=== PATIENT | female | born 1955 | race Caucasian/White ===

== ENCOUNTER 2017-03-14 22:54 | Emergency (ER) | payer MEDICARE, OTHER ==
[~2017-03-14] VITALS: Ht 172.7 cm; Wt 97.0 kg
[~2017-03-14 22:54] MED LIST: ACCUMIS19; ASPI81TA82 PO; ATOR40TA16 PO; CENTTAB9 PO; CYCL5TAB PO; GLIP5TAB8 PO; LANCETS1 MI1; LISI-515 PO; METF1000 PO; MIRA33504 PO; OXYB5TAB PO; PROZ20CA11 PO
[2017-03-14 23:08] VITALS: BP 123/67; PULSE 81; RESP 20; TEMP 98; O2SAT 97
[2017-03-15] MEDS ORDERED: ASPI-516 CHEW (00:12)
[2017-03-15] MEDS ORDERED: CENTCHW4 CHEW (00:12)
--- NOTE | 2017-03-15 01:09 | PD ---
HPI Chief Complaint: Musculoskeletal Complaint Time Seen by Provider: 00:11 Travel History International Travel<30 days: No Contact w/Intl Traveler<30days: No Traveled to known affect area: No History of Present Illness HPI Patient is a 61-year-old female who said left knee pain for the last 2 weeks she has not seen a doctor for this she's been taking ibuprofen without relief of her symptoms. Patient comes to the ER saying it's difficult to weight on her knee, In ER she is in no apparent distress. Says she is having pain constant for 2 weeks. Pt borrowed a knee immobilizer from friend , she is wearing it in the ER PFSH Past Medical History Hx Anticoagulant Therapy: No Asthma: Yes Autoimmune Disease: No Blood Disorders: No Anxiety: Yes Depression: Yes Heart Rhythm Problems: No Cancer: Yes (LUNG) Cardiac Catheterization: No Cardiovascular Problems: No High Cholesterol: No Chemotherapy: Yes (2014) Chest Pain: Yes Congestive Heart Failure: No Cerebrovascular Accident: No Diabetes: Yes Patient Takes Glucophage: Yes Diminished Hearing: No Endocrine: No Gastrointestinal Disorders: No Genitourinary: Yes (OVERACTIVE BLADDER) Hypertension: Yes Immune Disorder: No Implanted Vascular Access Dvce: No Musculoskeletal: No Neurologic: No Psychiatric: Yes (BORDERLINE PERSONALITY DISORDER) Reproductive: No Respiratory: Yes Immunizations Current: No Radiation Therapy: Yes (2014 FOR LUNG CA) Thyroid Disease: No Tetanus Vaccination: > 5 Years Influenza Vaccination: No PNEUMOCCOCAL Vaccine (Year): 3 ?: Not Menopausal: Yes : 3 Para: 2 : 1 Tubal Ligation: Yes Past Surgical History Abdominal Surgery: Yes (2 C-SECTIONS) Appendectomy: Yes Cardiac Surgery: No Section: Yes (1977,1978) Cholecystectomy: Yes Coronary Artery Bypass Graft: No Ear Surgery: No Endocrine Surgery: No Eye Surgery: No Genitourinary Surgery: No Gynecologic Surgery: Yes Hysterectomy: Yes Joint Replacement: Yes (RIGHT KNEE) Neurologic Surgery: No Oral Surgery: No Thoracic Surgery: No Other Surgery: Yes Social History Alcohol Use: Yes (socially- BEER) Tobacco Use: No (REPORTS QUITTING IN 2014) Substance Use: No Allergies-Medications (Allergen,Severity, Reaction): Coded Allergies: paclitaxel (Verified Allergy, Intermediate, Dizziness, 03/15/17) tramadol (Verified Allergy, Intermediate, Nausea/Vomiting, 03/15/17) acetaminophen (Verified Adverse Reaction, Severe, Nausea/Vomiting, ) hydrocodone (Verified Adverse Reaction, Severe, Nausea/Vomiting, 03/15/17) coconut (Verified Adverse Reaction, Intermediate, vomiting, 03/15/17) Reported Meds & Prescriptions Reported Meds & Active Scripts Active Meloxicam 7.5 Mg Tab 7.5 Mg PO DAILY Lisinopril 20 Mg Tab 20 Mg PO DAILY Oxybutynin ER 24 HR (Oxybutynin Chloride) 5 Mg Tab 5 Mg PO BID Lancets 1 Mis Mis 1 Box .ROUTE DIRECTED Accu-Chek Softclix Lancet 1 Mis Mis 1 Box .ROUTE DIRECTED Glipizide 5 Mg Tab 5 Mg PO DAILY Take 30 minutes before a meal Metformin (Metformin HCl) 1,000 Mg Tab 1,000 Mg PO BIDPC With meals Atorvastatin (Atorvastatin Calcium) 40 Mg Tab 40 Mg PO HS Reported Centrum (Multiple Vitamins W/ Minerals) 1 Chew 1 Tab CHEW DAILY Aspirin 81 Mg Chew 81 Mg CHEW DAILY Review of Systems Except as stated in HPI: all other systems reviewed are Neg Musculoskeletal: Positive: Myalgias, Arthralgias (left knee) Physical Exam Narrative GENERAL: SKIN: Warm and dry. HEAD: Atraumatic. Normocephalic. EYES: Pupils equal and round. No scleral icterus. No injection or drainage. ENT: No nasal bleeding or discharge. Mucous membranes pink and moist. NECK: Trachea midline. No JVD. CARDIOVASCULAR: Regular rate and rhythm. RESPIRATORY: No accessory muscle use. Clear to auscultation. Breath sounds equal bilaterally. GASTROINTESTINAL: Abdomen soft, non-tender, nondistended. Hepatic and splenic margins not palpable. MUSCULOSKELETAL: Extremities L knee no swelling no redness without clubbing, cyanosis, or edema. No obvious deformities. NEUROLOGICAL: Awake and alert. No obvious cranial nerve deficits. Motor grossly within normal limits. Five out of 5 muscle strength in the arms and legs. Normal speech. PSYCHIATRIC: Appropriate mood and affect; insight and judgment normal. Data Data Last Documented VS Vital Signs Date Time Temp Pulse Resp B/P (MAP) Pulse Ox O2 Delivery O2 Flow Rate FiO2 03/15/17 04:54 03/15/17 04:35 88 16 98 Room Air 03/14/17 23:08 98.0 Orders Orders Knee, Complete (4vws) (03/15/17 ) Ketorolac Inj (Toradol Inj) (03/15/17 02:30) Acetamin-Hydrocod 325-5 Mg ([place] 5-325 (03/15/17 02:30) Ed Discharge Order (03/15/17 04:42) MDM Medical Decision Making Medical Screen Exam Complete: Yes Emergency Medical Condition: Yes Differential Diagnosis sprain vs strain vs occult fracture vs ACL or PCL other Narrative Course knee x-ray negative for fracture she already has knee immobilzer motrin and weight baring as tolerated F/U outpt Diagnosis Primary Impression: Knee pain, left Qualified Codes: M25.562 - Pain in left knee Patient Instructions: General Instructions, Knee Sprain (ED) Disposition: 01 DISCHARGE HOME Condition: Dexter Treviño MD Mar 15, 2017 01:09
[2017-03-15 02:17] VITALS: BP 132/63; PULSE 64; RESP 16; O2SAT 97
--- NOTE | 2017-03-15 02:21 | RADRPT ---
EXAM DATE/TIME: 03/15/2017 01:56 [facility] COMPARISON: No previous studies available for comparison. INDICATIONS : Left knee pain, swelling for 2 weeks with no known injury MEDICAL HISTORY : None. SURGICAL HISTORY : None. ENCOUNTER: Initial ACUITY: 2 weeks PAIN SCORE: 10/10 LOCATION: Left entire knee FINDINGS: There is prominent medial compartment joint space narrowing and tricompartmental osteophyte formation . There is a small suprapatellar effusion. No evidence of fracture, dislocation or bony destruction. CONCLUSION: Moderate arthritic changes and small joint effusion. Ravinder Langford MD on March 15, 2017 at 2:09 Board Certified Radiologist. This report was verified electronically.
[2017-03-15] MEDS ORDERED: ACETAMINOPHEN/HYDROcodone 325 MG/5 MG TAB PO ONE (02:30)
[2017-03-15] MEDS ORDERED: KETOROLAC TROMETHAMINE 60 MG/2 ML (IM) VIAL IM ONE (02:30)
[2017-03-15 04:35] VITALS: BP 142/78; PULSE 88; RESP 16; O2SAT 98
[2017-03-15] MEDS ORDERED: TRIA40P I-ARTICULR (11:32)
[2017-03-15] MEDS ORDERED: MELO7.5T27 PO (11:32)
[2017-03-28] MEDS ORDERED: MELO7.5T27 PO (08:37)
== END 2017-03-15 04:56 | disposition home or self-care (01) ==
LOC: PHED 22:54
DX: M25.562 Pain in left knee (principal); J45.909 Unspecified asthma, uncomplicated; E11.9 Type 2 diabetes mellitus without complications; I10 Essential (primary) hypertension; F32.9 Major depressive disorder, single episode, unspecified; Z85.118 Personal history of other malignant neoplasm of bronchus and lung; Z79.84 Long term (current) use of oral hypoglycemic drugs
CPT/HCPCS: 73564; 96372; 99284; J1885

== ENCOUNTER 2017-07-16 17:22 | Observation (INO) | payer MEDICARE, OTHER ==
[~2017-07-16] VITALS: Ht 172.7 cm; Wt 94.4 kg
[~2017-07-16 17:22] MED LIST changes: +ASPI-516 CHEW; -ASPI81TA82 PO; +CENTCHW4 CHEW; -CENTTAB9 PO; -CYCL5TAB PO; +MELO7.5T27 PO; -MIRA33504 PO; -PROZ20CA11 PO
[2017-07-16 17:25] VITALS: BP 159/82; PULSE 89; RESP 18; TEMP 98.4; O2SAT 97
[2017-07-16] MEDS ORDERED: MECLIZINE HCL 25 MG TAB PO ONE (18:00)
[2017-07-16] MEDS ORDERED: SODIUM CHLOR 0.9% 1000 ML INJ 1,000 ML IV ONE (18:00)
[2017-07-16 18:21] LABS: BILIRUBIN, URINE NEG (NEG); BLOOD, URINE NEG (NEG); GLUCOSE,URINE NEG (NEG); KETONE, URINE NEG (NEG); NITRITE,URINE NEG (NEG); PH, URINE 5.5 (5.0-8.5); URINE COLOR YELLOW (YELLW/STRAW); URINE LEUKOCYTE ESTERASE NEG (NEG)
[2017-07-16 18:25] LABS: RBC, URINE 0-2 /hpf (0-3); SQUAMOUS EPITHELIAL CELL URINE 0-5 /hpf (0-5); WBC, URINE 0-2 /hpf (0-5)
[2017-07-16 18:33] LABS: AUTOMATED NEUTROPHIL # 6.6 TH/MM3 (1.8-7.7); BASOPHIL % 0.4 % (0.0-2.0); EOSINOPHIL # 0.3 TH/MM3 (0-0.4); EOSINOPHIL % 2.9 % (0.0-4.0); HEMATOCRIT 34.3 % (35.0-46.0); HEMOGLOBIN 11.2 GM/DL (11.6-15.3); LYMPH % 23.1 % (9.0-44.0); LYMPHOCYTE # 2.2 TH/MM3 (1.0-4.8); MEAN CELL VOLUME 82.5 FL (80.0-100.0); MEAN CORPUSCULAR HEMOGLOBIN 26.8 PG (27.0-34.0); MEAN CORPUSCULAR HGB CONC 32.5 % (32.0-36.0); MEAN PLATELET VOLUME 7.7 FL (7.0-11.0); MONO % 5.4 % (0.0-8.0); MONOCYTE # 0.5 TH/MM3 (0-0.9); NEUT % 68.2 % (16.0-70.0); PLATELET COUNT 326 TH/MM3 (150-450); RED BLOOD COUNT 4.16 MIL/MM3 (4.00-5.30); RED CELL DISTRIBUTION WIDTH 14.8 % (11.6-17.2); WHITE BLOOD COUNT 9.6 TH/MM3 (4.0-11.0)
--- NOTE | 2017-07-16 18:40 | PD ---
HPI Chief Complaint: Dizziness Time Seen by Provider: 17:34 Travel History International Travel<30 days: No Contact w/Intl Traveler<30days: No Traveled to known affect area: No History of Present Illness HPI This is a 61-year-old female who presents to the emergency department with 3 weeks of dizziness described as the room spinning and feeling like she is going to pass out when she walks. She says the symptoms are constant and not changed with position or movement. She also feels nauseous and has thrown up several times in the past 3 days. She denies any headache or abdominal pain. She did have some loose stools. She denies any fevers or chills. She does have a history of lung cancer and has been in remission for 2 years. She also has diabetes and hypertension. PFSH Past Medical History Hx Anticoagulant Therapy: No Asthma: Yes Autoimmune Disease: No Blood Disorders: No Anxiety: Yes Depression: Yes Heart Rhythm Problems: No Cancer: Yes (LUNG) Cardiac Catheterization: No Cardiovascular Problems: No High Cholesterol: No Chemotherapy: Yes (2014) Chest Pain: Yes Congestive Heart Failure: No Cerebrovascular Accident: No Diabetes: Yes Patient Takes Glucophage: Yes Diminished Hearing: No Endocrine: No Gastrointestinal Disorders: No Genitourinary: Yes (OVERACTIVE BLADDER) Hypertension: Yes Immune Disorder: No Implanted Vascular Access Dvce: No Musculoskeletal: No Neurologic: No Psychiatric: Yes (BORDERLINE PERSONALITY DISORDER) Reproductive: No Respiratory: Yes (COPD) Immunizations Current: No Radiation Therapy: Yes (2014 FOR LUNG CA) Thyroid Disease: No Tetanus Vaccination: < 5 Years PNEUMOCCOCAL Vaccine (Year): 3 ?: Not Menopausal: Yes : 3 Para: 2 : 1 Tubal Ligation: Yes Past Surgical History Abdominal Surgery: Yes (2 C-SECTIONS) Appendectomy: Yes Cardiac Surgery: No Section: Yes (1977,1978) Cholecystectomy: Yes Coronary Artery Bypass Graft: No Ear Surgery: No Endocrine Surgery: No Eye Surgery: No Genitourinary Surgery: No Gynecologic Surgery: Yes Hysterectomy: Yes Joint Replacement: Yes (RIGHT KNEE) Neurologic Surgery: No Oral Surgery: No Thoracic Surgery: No Other Surgery: Yes Social History Alcohol Use: Yes (socially- BEER) Tobacco Use: No (REPORTS QUITTING IN 2014) Substance Use: No Allergies-Medications (Allergen,Severity, Reaction): Coded Allergies: paclitaxel (Verified Allergy, Intermediate, Dizziness, 07/16/17) tramadol (Verified Allergy, Intermediate, Nausea/Vomiting, 07/16/17) acetaminophen (Verified Adverse Reaction, Severe, Nausea/Vomiting, 07/16/17 ) hydrocodone (Verified Adverse Reaction, Severe, Nausea/Vomiting, 07/16/17) coconut (Verified Adverse Reaction, Intermediate, vomiting, 07/16/17) Reported Meds & Prescriptions Reported Meds & Active Scripts Active Lisinopril 20 Mg Tab 20 Mg PO DAILY Oxybutynin ER 24 HR (Oxybutynin Chloride) 5 Mg Tab 5 Mg PO BID Lancets 1 Mis Mis 1 Box .ROUTE DIRECTED Accu-Chek Softclix Lancet 1 Mis Mis 1 Box .ROUTE DIRECTED Glipizide 5 Mg Tab 5 Mg PO DAILY Take 30 minutes before a meal Metformin (Metformin HCl) 1,000 Mg Tab 1,000 Mg PO BIDPC With meals Atorvastatin (Atorvastatin Calcium) 40 Mg Tab 40 Mg PO HS Reported Centrum (Multiple Vitamins W/ Minerals) 1 Chew 1 Tab CHEW DAILY Aspirin 81 Mg Chew 81 Mg CHEW DAILY Review of Systems Except as stated in HPI: all other systems reviewed are Neg Physical Exam Narrative GENERAL: Unwell appearing SKIN: Pale HEAD: Atraumatic. Normocephalic. EYES: Pupils equal and round. No injection or drainage. Horizontal nystagmus to the right. ENT: Moist mucous membranes NECK: Trachea midline. CARDIOVASCULAR: Regular rate and rhythm. No murmur appreciated. RESPIRATORY: Clear to auscultation. Breath sounds equal bilaterally. GASTROINTESTINAL: Abdomen soft, non-tender, nondistended. MUSCULOSKELETAL: No obvious deformities. NEUROLOGICAL: Awake and alert. No obvious cranial nerve deficits. No dysarthria or aphasia. No upper or lower extremity drift. No upper extremity ataxia. Visual stevenson intact. PSYCHIATRIC: Appropriate mood and affect; insight and judgment normal. Data Data Last Documented VS Vital Signs Date Time Temp Pulse Resp B/P (MAP) Pulse Ox O2 Delivery O2 Flow Rate FiO2 07/16/17 17:38 89 16 07/16/17 17:25 98.4 159/82 (107) [address] Brain W/O Iv Contrast(Rout) (07/16/17 ) Complete Blood Count With Diff (07/16/17 17:57) Comprehensive Metabolic Panel (07/16/17 17:57) Meclizine (Antivert) (07/16/17 18:00) ^ Insert Iv (07/16/17 17:57) Sodium Chlor 0.9% 1000 Ml Inj (Ns 1000 M (07/16/17 18:00) Urinalysis - C+S If Indicated (07/16/17 17:57) Electrocardiogram (07/16/17 ) Admit Order (Ed Use Only) (07/16/17 19:20) Mri Brain W&W/O Contrast (07/17/17 ) Labs Laboratory Tests Test 07/16/17 18:14 07/16/17 18:25 Urine Color YELLOW Urine Turbidity CLEAR Urine pH 5.5 Urine Specific [place] 1.020 Urine Protein NEG mg/dL Urine Glucose (UA) NEG mg/dL Urine Ketones NEG mg/dL Urine Occult Blood NEG Urine Nitrite NEG Urine Bilirubin NEG Urine Urobilinogen 0.2 MG/DL Urine Leukocyte Esterase NEG Urine RBC 0-2 /hpf Urine WBC 0-2 /hpf Urine Squamous Epithelial Cells 0-5 /hpf Urine Bacteria NONE /hpf Microscopic Urinalysis Comment CULT NOT INDICATED White Blood Count 9.6 TH/MM3 Red Blood Count 4.16 MIL/MM3 Hemoglobin 11.2 GM/DL Hematocrit 34.3 % Mean Corpuscular Volume 82.5 FL Mean Corpuscular Hemoglobin 26.8 PG Mean Corpuscular Hemoglobin Concent 32.5 % Red Cell Distribution Width 14.8 % Platelet Count 326 TH/MM3 Mean Platelet Volume 7.7 FL Neutrophils (%) (Auto) 68.2 % Lymphocytes (%) (Auto) 23.1 % Monocytes (%) (Auto) 5.4 % Eosinophils (%) (Auto) 2.9 % Basophils (%) (Auto) 0.4 % Neutrophils # (Auto) 6.6 TH/MM3 Lymphocytes # (Auto) 2.2 TH/MM3 Monocytes # (Auto) 0.5 TH/MM3 Eosinophils # (Auto) 0.3 TH/MM3 Basophils # (Auto) 0.0 TH/MM3 CBC Comment DIFF FINAL Differential Comment Blood Urea Nitrogen 17 MG/DL Creatinine 1.10 MG/DL Random Glucose 91 MG/DL Total Protein 7.5 GM/DL Albumin 3.5 GM/DL Calcium Level 9.0 MG/DL Alkaline Phosphatase 90 U/L Aspartate Amino Transf (AST/SGOT) 11 U/L Alanine Aminotransferase (ALT/SGPT) 19 U/L Total Bilirubin 0.1 MG/DL Sodium Level 140 MEQ/L Potassium Level 4.1 MEQ/L Chloride Level 108 MEQ/L Carbon Dioxide Level 25.0 MEQ/L Anion Gap 7 MEQ/L Estimat Glomerular Filtration Rate 51 ML/MIN MDM Medical Decision Making Medical Screen Exam Complete: Yes Emergency Medical Condition: Yes Interpretation(s) Afebrile, hypertensive No leukocytosis Electrolytes are reassuring Scripts Meclizine HCl (Meclizine 25) 25 Mg Tab 25 MG PO Q8HR for Vertigo for 10 Days, TAB Prov: Dorian Wetzel 07/17/17 Barbara Aldrich MD Jul 16, 2017 18:39
[2017-07-16 18:52] LABS: CHLORIDE 108 MEQ/L (98-107); SODIUM (NA) 140 MEQ/L (136-145)
[2017-07-16 18:55] LABS: ALBUMIN 3.5 GM/DL (3.4-5.0); GLUCOSE,RANDOM 91 MG/DL (74-106)
[2017-07-16 18:56] LABS: BLOOD UREA NITROGEN 17 MG/DL (7-18)
[2017-07-16 18:58] LABS: ALT (GPT) 19 U/L (10-53); AST (GOT) 11 U/L (15-37)
[2017-07-16 18:59] LABS: GLOMERULAR FILTRATION RATE 51 ML/MIN (>89)
[2017-07-16 19:00] LABS: TOTAL BILIRUBIN ADULT 0.1 MG/DL (0.2-1.0); TOTAL PROTEIN 7.5 GM/DL (6.4-8.2)
[2017-07-16 19:01] LABS: ALKALINE PHOSPHATASE 90 U/L (45-117)
--- NOTE | 2017-07-16 19:04 | RADRPT ---
EXAM DATE/TIME: 07/16/2017 18:36 [facility] COMPARISON: No previous studies available for comparison. INDICATIONS : Weakness and lightheaded for two weeks. RADIATION DOSE: 50.98 CTDIvol (mGy) MEDICAL HISTORY : Hypertension. Chronic obstructive pulmonary disease. Diabetes. SURGICAL HISTORY : Appendectomy. Cholecystectomy.Hysterectomy. ENCOUNTER: Initial ACUITY: 2 weeks PAIN SCALE: 0/10 LOCATION: cranial TECHNIQUE: Multiple contiguous axial images were obtained of the head. Using automated exposure control and adj ustment of the mA and/or kV according to patient size, radiation dose was kept as low as reasonably a chievable to obtain optimal diagnostic quality images. DICOM format image data is available electro nically for review and comparison. FINDINGS: CEREBRUM: The ventricles are normal for age. No evidence of midline shift, mass lesion, hemorrhage or acute in farction. No extra-axial fluid collections are seen. POSTERIOR FOSSA: The cerebellum and brainstem are intact. The 4th ventricle is midline. The cerebellopontine angle i s unremarkable. EXTRACRANIAL: The visualized portion of the orbits is intact. SKULL: The calvaria is intact. No evidence of skull fracture. CONCLUSION: Negative noncontrast head CT. Ravinder Kim MD on July 16, 2017 at 19:02 Board Certified Radiologist. This report was verified electronically.
[2017-07-16] MEDS ORDERED: MECLIZINE HCL 25 MG TAB PO PRN (19:30)
[2017-07-16] MEDS ORDERED: NALOXONE HCL 0.4 MG/ML AMP IV PUSH PRN (19:30)
[2017-07-16] MEDS ORDERED: SODIUM CHLORIDE 0.9% FLUSH 10 ML FLUSH IV FLUSH PRN (19:30)
[2017-07-16] MEDS ORDERED: ONDANSETRON HCL 4 MG/2 ML VIAL IVP PRN (19:30)
[2017-07-16 20:15] VITALS: PULSE 68
[2017-07-16 20:30] VITALS: BP_SYST 142; BP_SYST 143; BP_SYST 154; BP_DIAS 85; BP_DIAS 87; BP_DIAS 93; PULSE 69; RESP 20; TEMP 97.8; O2SAT 98
[2017-07-16] MEDS: SODIUM CHLORIDE 0.9% FLUSH 10 ML FLUSH IV FLUSH SCH (21:06)
[2017-07-16] MEDS ORDERED: DEXTROSE 50% IN WATER 50 ML VIAL(D50) IV PUSH PRN (22:45)
[2017-07-16] MEDS ORDERED: GLUCAGON 1 MG/ML VIAL OTHER PRN (22:45)
[2017-07-17] VITALS: BP 130/93; PULSE 69; RESP 20; TEMP 98.2; O2SAT 97
[2017-07-17 04:00] VITALS: BP 113/56; PULSE 72; RESP 20; TEMP 97.4; O2SAT 96
[2017-07-17 05:23] LABS: AUTOMATED NEUTROPHIL # 3.7 TH/MM3 (1.8-7.7); BASOPHIL % 0.5 % (0.0-2.0); EOSINOPHIL # 0.3 TH/MM3 (0-0.4); EOSINOPHIL % 4.1 % (0.0-4.0); HEMATOCRIT 30.4 % (35.0-46.0); HEMOGLOBIN 10.3 GM/DL (11.6-15.3); LYMPH % 30.7 % (9.0-44.0); MEAN CELL VOLUME 84.3 FL (80.0-100.0); MEAN CORPUSCULAR HEMOGLOBIN 28.6 PG (27.0-34.0); MEAN CORPUSCULAR HGB CONC 33.9 % (32.0-36.0); MEAN PLATELET VOLUME 7.5 FL (7.0-11.0); MONO % 7.3 % (0.0-8.0); MONOCYTE # 0.5 TH/MM3 (0-0.9); NEUT % 57.4 % (16.0-70.0); PLATELET COUNT 294 TH/MM3 (150-450); RED CELL DISTRIBUTION WIDTH 15.3 % (11.6-17.2); WHITE BLOOD COUNT 6.5 TH/MM3 (4.0-11.0)
[2017-07-17 05:24] LABS: CHLORIDE 110 MEQ/L (98-107); SODIUM (NA) 142 MEQ/L (136-145)
[2017-07-17 05:28] LABS: BICARBONATE 27.8 MEQ/L (21.0-32.0); BLOOD UREA NITROGEN 13 MG/DL (7-18); CALCIUM 8.3 MG/DL (8.5-10.1); GLUCOSE,RANDOM 117 MG/DL (74-106)
[2017-07-17 05:31] LABS: ALT (GPT) 18 U/L (10-53); AST (GOT) 7 U/L (15-37); CREATININE 0.84 MG/DL (0.50-1.00); GLOMERULAR FILTRATION RATE 69 ML/MIN (>89)
[2017-07-17 05:33] LABS: TOTAL BILIRUBIN ADULT 0.2 MG/DL (0.2-1.0); TOTAL PROTEIN 6.5 GM/DL (6.4-8.2)
[2017-07-17 05:34] LABS: ALKALINE PHOSPHATASE 80 U/L (45-117)
[2017-07-17 08:00] VITALS: BP_SYST 133; BP_SYST 153; BP_SYST 159; BP_SYST 170; BP_DIAS 58; BP_DIAS 69; BP_DIAS 71; BP_DIAS 74; PULSE 69; PULSE 70; RESP 20; TEMP 96.1; TEMP 97.9; O2SAT 97
[2017-07-17] MEDS: INSULIN ASPART SUPPLEMENTAL SCALE SQ SCH ×2 (08:00→12:04)
[2017-07-17] MEDS: SODIUM CHLORIDE 0.9% FLUSH 10 ML FLUSH IV FLUSH SCH ×2 (08:18→16:07)
[2017-07-17 09:00] VITALS: PULSE 74
--- NOTE | 2017-07-17 09:02 | EKG ---
Date Performed: 07/16/2017 Time Performed: 20:00:20 PTAGE: 61 years EKG: Sinus rhythm MINIMAL VOLTAGE CRITERIA FOR LVH, CONSIDER NORMAL VARIANT BORDERLINE ECG PREVIOUS TRACING : 12/20/2014 10.42 DOCTOR: Rey Ramos Interpretating Date/Time 07/17/2017 09:01:48
[2017-07-17] MEDS ORDERED: ASPIRIN 81 MG CHEW TAB CHEW SCH (09:15)
[2017-07-17] MEDS ORDERED: LISINOPRIL 20 MG TAB PO SCH (09:15)
--- NOTE | 2017-07-17 09:15 | HHI.HP ---
HPI Service [facility] Primary Care Physician Litzy Garcia MD Admission Diagnosis vertigo Diagnoses: (1) Dizziness Diagnosis: Principal (2) Nausea & vomiting Diagnosis: Principal (3) Acute renal failure superimposed on stage 2 chronic kidney disease Diagnosis: Principal Chief Complaint: Lightheadedness, dizziness, nausea vomiting Travel History International Travel<30 Days: No Contact w/Intl Traveler <30 Da: No Traveled to Known Affected Are: No History of Present Illness 61-year-old female with known history of hypertension, hyperlipidemia , diabetes, history of lung cancer, anxiety who presented to the hospital because a 2 week history of lightheadedness, dizziness, nausea and vomiting. Patient does have a prior medical doctor Dr. Auguste at [facility] however she is not contacted her primary medical doctor for her symptoms since she developed them. She indicates that her symptoms are worse whenever she stands up. She feels wobbly and the room is spinning. It improves when she sits down or lays down. States that she has 1-2 episodes of nausea vomiting daily with her lightheadedness, dizziness. She indicates that whenever she moves too fast she gets some blurred vision but her vision does return. Patient indicates that she has had cough and runny nose recently. She denies any neurological symptoms such as headache, speech difficulties, dysphagia, weakness, paresthesia. Patient was given meclizine in emergency department with improvement of her symptoms. CT scan was done which did not indicate any acute abnormality. It was recommended by the ER physician that the patient be observed in the hospital for further evaluation. Review of Systems Constitutional: COMPLAINS OF: Dizziness Gastrointestinal: COMPLAINS OF: Nausea, Vomiting Except as stated in HPI: all other systems reviewed are Neg Past Family Social History Past Medical History Hypertension Hyperlipidemia Diabetes History of lung cancer Anxiety/depression Personality disorder Past Surgical History 2 C-sections Right knee replacement Tubal ligation Hysterectomy Cholecystectomy Right Mediport placement Right ankle surgery Reported Medications Reported Meds & Active Scripts Active Lisinopril 20 Mg Tab 20 Mg PO DAILY Oxybutynin ER 24 HR (Oxybutynin Chloride) 5 Mg Tab 5 Mg PO BID Lancets 1 Mis Mis 1 Box .ROUTE DIRECTED Accu-Chek Softclix Lancet 1 Mis Mis 1 Box .ROUTE DIRECTED Glipizide 5 Mg Tab 5 Mg PO DAILY Take 30 minutes before a meal Metformin (Metformin HCl) 1,000 Mg Tab 1,000 Mg PO BIDPC With meals Atorvastatin (Atorvastatin Calcium) 40 Mg Tab 40 Mg PO HS Reported Centrum (Multiple Vitamins W/ Minerals) 1 Chew 1 Tab CHEW DAILY Aspirin 81 Mg Chew 81 Mg CHEW DAILY Allergies: Coded Allergies: paclitaxel (Verified Allergy, Intermediate, Dizziness, 07/16/17) tramadol (Verified Allergy, Intermediate, Nausea/Vomiting, 07/16/17) acetaminophen (Verified Adverse Reaction, Severe, Nausea/Vomiting, 07/16/17 ) hydrocodone (Verified Adverse Reaction, Severe, Nausea/Vomiting, 07/16/17) coconut (Verified Adverse Reaction, Intermediate, vomiting, 07/16/17) Family History Reviewed and significant for mother still alive with a permanent pacemaker. Father is , however she does not know his medical history. Social History Patient quit smoking 2 years ago. Prior to that she smoked 1 pack of cigarettes a day since she was 15 years old. She denies any alcohol or illicit drugs Physical Exam Vital Signs Vital Signs Date Time Temp Pulse Resp B/P (MAP) Pulse Ox O2 Delivery O2 Flow Rate FiO2 07/17/17 09:00 74 07/17/17 08:00 97.9 70 20 170/74 (106) 97 159/69 (99) 153/71 (98) 07/17/17 04:00 97.4 72 20 113/56 (75) 96 07/17/17 00:00 98.2 69 20 130/93 (105) 97 07/16/17 20:30 97.8 69 20 143/87 (105) 98 142/85 (104) 154/93 (113) 07/16/17 20:15 68 07/16/17 17:38 89 16 07/16/17 17:25 98.4 89 18 159/82 (107) 97 Physical Exam GENERAL: Well-developed, well-nourished, in no acute distress. alert and orientated HEENT: Head is normocephalic without any lesions or masses noted. Facial features are symmetric. Eyes: Pupils equal round reactive to light. Extraocular muscles are intact. Conjunctivae were clear. Oropharyngeal: Pharynx without any erythema edema. Tongue is midline without deviation. Buccal mucosa is moist without any masses or lesions NECK: Supple without any masses. Trachea midline no deviation. No JVD, no bruits are appreciated CARDIAC: Regular rhythm, regular rate. S1/S2 are heard. No murmurs gallops or rubs. LUNGS: Clear to auscultation bilaterally. No wheeze, rhonchi or rales. No use of accessory muscles on inspiration or expiration. ABDOMEN: Soft, nontender. Nondistended. Bowel sounds heard in all 4 quadrants. No organomegaly or masses. Negative rebound, negative guarding EXTREMITIES: No edema, pulses are equal bilaterally. No cyanosis or clubbing NEUROLOGY: Mood and affect appear appropriate. Cranial nerves II through XII grossly intact. Muscle strength 5/5 in upper and lower extremities bilaterally. Deep tendon reflexes are 2+ in upper and lower extremities bilaterally. Was not able to elicit any lightheadedness or dizziness with neck extension or rotation Laboratory Laboratory Tests Test 07/16/17 18:14 07/16/17 18:25 07/17/17 05:01 Urine Color YELLOW Urine Turbidity CLEAR Urine pH 5.5 Urine Specific [place] 1.020 Urine Protein NEG Urine Glucose (UA) NEG Urine Ketones NEG Urine Occult Blood NEG Urine Nitrite NEG Urine Bilirubin NEG Urine Urobilinogen 0.2 Urine Leukocyte Esterase NEG Urine RBC 0-2 Urine WBC 0-2 Urine Squamous Epithelial Cells 0-5 Urine Bacteria NONE Microscopic Urinalysis Comment CULT NOT INDICATED White Blood Count 9.6 6.5 Red Blood Count 4.16 3.60 Hemoglobin 11.2 10.3 Hematocrit 34.3 30.4 Mean Corpuscular Volume 82.5 84.3 Mean Corpuscular Hemoglobin 26.8 28.6 Mean Corpuscular Hemoglobin Concent 32.5 33.9 Red Cell Distribution Width 14.8 15.3 Platelet Count 326 294 Mean Platelet Volume 7.7 7.5 Neutrophils (%) (Auto) 68.2 57.4 Lymphocytes (%) (Auto) 23.1 30.7 Monocytes (%) (Auto) 5.4 7.3 Eosinophils (%) (Auto) 2.9 4.1 Basophils (%) (Auto) 0.4 0.5 Neutrophils # (Auto) 6.6 3.7 Lymphocytes # (Auto) 2.2 2.0 Monocytes # (Auto) 0.5 0.5 Eosinophils # (Auto) 0.3 0.3 Basophils # (Auto) 0.0 0.0 CBC Comment DIFF FINAL DIFF FINAL Differential Comment Blood Urea Nitrogen 17 13 Creatinine 1.10 0.84 Random Glucose 91 117 Total Protein 7.5 6.5 Albumin 3.5 3.0 Calcium Level 9.0 8.3 Alkaline Phosphatase 90 80 Aspartate Amino Transf (AST/SGOT) 11 7 Alanine Aminotransferase (ALT/SGPT) 19 18 Total Bilirubin 0.1 0.2 Sodium Level 140 142 Potassium Level 4.1 3.9 Chloride Level 108 110 Carbon Dioxide Level 25.0 27.8 Anion Gap 7 4 Estimat Glomerular Filtration Rate 51 69 Result Diagram: 07/17/17 0501 07/17/17 0501 Caprini VTE Risk Assessment Caprini VTE Risk Assessment: No/Low Risk (score <= 1) Caprini Risk Assessment Model Point Value = 1 Point Value = 2 Point Value = 3 Point Value = 5 Age 41-60 Minor surgery BMI > 25 kg/m2 Swollen legs Varicose veins or History of unexplained or recurrent spontaneous Oral contraceptives or hormone replacement Sepsis (< 1 month) Serious lung disease, including pneumonia (< 1 month) Abnormal pulmonary function Acute myocardial infarction Congestive heart failure (< 1 month) History of inflammatory bowel disease Medical patient at bed rest Age 61-74 Arthroscopic surgery Major open surgery (> 45 min) Laparoscopic surgery (> 45 min) Malignancy Confined to bed (> 72 hours) Immobilizing plaster cast Central venous access Age >= 75 History of VTE Family history of VTE Factor V Leiden Prothrombin [id number] Lupus anticoagulant Anticardiolipin antibodies Elevated serum homocysteine Heparin-induced thrombocytopenia Other congenital or acquired thrombophilia Stroke (< 1 month) Elective arthroplasty Hip, pelvis, or leg fracture Acute spinal cord injury (< 1 month) Prophylaxis Regimen Total Risk Factor Score Risk Level Prophylaxis Regimen 0-1 Low Early ambulation 2 Moderate Order ONE of the following: *Sequential Compression Device (SCD) *Heparin 5000 units SQ BID 3-4 Higher Order ONE of the following medications: *Heparin 5000 units SQ TID *Enoxaparin/Lovenox 40 mg SQ daily (WT < 150 kg, CrCl > 30 mL/min) *Enoxaparin/Lovenox 30 mg SQ daily (WT < 150 kg, CrCl > 10-29 mL/min) *Enoxaparin/Lovenox 30 mg SQ BID (WT < 150 kg, CrCl > 30 mL/min) AND/OR *Sequential Compression Device (SCD) 5 or more Highest Order ONE of the following medications: *Heparin 5000 units SQ TID (Preferred with Epidurals) *Enoxaparin/Lovenox 40 mg SQ daily (WT < 150 kg, CrCl > 30 mL/min) *Enoxaparin/Lovenox 30 mg SQ daily (WT < 150 kg, CrCl > 10-29 mL/min) *Enoxaparin/Lovenox 30 mg SQ BID (WT < 150 kg, CrCl > 30 mL/min) AND *Sequential Compression Device (SCD) Assessment and Plan Assessment and Plan Lightheadedness, dizziness, workup was unremarkable for any central etiology of her symptoms. Patient with benign positional vertigo -Patient presented with 2 weeks of lightheadedness, dizziness, nausea and vomiting, rhinorrhea, cough -Meclizine did improve her symptoms in the emergency department -CT scan was unremarkable -MRI of the brain was unremarkable for any acute abnormality -Carotid ultrasound did not show any abnormality -Orthostatic vitals were performed and unremarkable -Will hold oxybutynin -Physical therapy does not indicate any acute problems. There was dizziness associated with all planes, does not indicate any specific thing that would benefit from Kaitlyn maneuver -Schedule meclizine 25 mg 3 times daily Acute renal failure superimposed on chronic kidney disease stage II, improved -Likely secondary to 2 weeks of intermittent nausea and vomiting -Continue monitor renal function -Status post 1 L of IV fluid, continue IV fluid Diabetes -Accu-Cheks with sliding scale insulin -Hold oral hypoglycemic agents -Diabetic diet Hypertension, hyperlipidemia -Continue home medications DVT prevention -Sequential compression devices Discharge disposition Discharge home in stable condition Activity: Ad aminta. Diet: Diabetic diet Medication per medication which alleviation Follow-up of her medical doctor in 1 week Discussed Condition With Nursing staff, physical therapy, patient, daughter at bedside Dorian Wetzel Jul 17, 2017 09:15
[2017-07-17] MEDS ORDERED: SODIUM CHLOR 0.9% 1000 ML INJ 1,000 ML IV SCH (09:30)
[2017-07-17] MEDS: MECLIZINE HCL 25 MG TAB PO SCH ×2 (09:45→14:45)
[2017-07-17] MEDS ORDERED: LORazepam 2 MG/ML VIAL IV PUSH ONE (13:00)
[2017-07-17] MEDS ORDERED: GADODIAMIDE PF 287 MG/ML 20 ML VIAL (for RAD MRI) IVCONTRAST ONE (13:20)
--- NOTE | 2017-07-17 14:35 | RADRPT ---
EXAM DATE/TIME: 07/17/2017 13:14 [facility] COMPARISON: CT BRAIN W/O CONTRAST, July 16, 2017, 18:36. INDICATIONS : Dizziness. CONTRAST: 18 cc Omniscan (gadodiamide) IV MEDICAL HISTORY : Carcinoma, lung. Hypertension. Diabetes mellitus type 2. SURGICAL HISTORY : Hysterectomy. Total knee replacement, right. Cholecystectomy. Appendectomy. Left shoulder surgery. Right ankle repair. ENCOUNTER: Subsequent ACUITY: 3 weeks PAIN SCORE: 0/10 LOCATION: head. TECHNIQUE: Multiplanar, multisequence MRI of the brain was performed both prior to and following the administrat ion of paramagnetic contrast. FINDINGS: CEREBRUM: The ventricles are normal for age. No evidence of midline shift, mass lesion, hemorrhage or acute in farction. No extraaxial fluid collections are seen. The pituitary gland and suprasellar cistern are normal in configuration. WHITE MATTER: No significant signal abnormalities are seen in the white matter. POSTERIOR FOSSA: The cerebellum and brainstem are intact. The 4th ventricle is midline. The cerebellopontine angle is unremarkable. The cerebellar tonsils are normal in position. DIFFUSION IMAGING: No focal areas of restricted diffusion are seen. No evidence of acute infarction. EXTRACRANIAL: The visualized portions of the orbits and paranasal sinuses are unremarkable. POST-CONTRAST: No abnormal areas of parenchymal or dural enhancement. No evidence of blood-brain barrier breakdown. CONCLUSION: Normal examination. Rey Brarera MD on July 17, 2017 at 14:32 Board Certified Radiologist. This report was verified electronically.
--- NOTE | 2017-07-17 15:24 | RADRPT ---
EXAM DATE/TIME: 07/17/2017 10:12 [facility] COMPARISON: No previous studies available for comparison. INDICATIONS : Vertigo. MEDICAL HISTORY : Hypertension. Chronic obstructive pulmonary disease. Asthma. Diabetes. Lung cancer. Chemotherapy. R adiation therapy. SURGICAL HISTORY : Hysterectomy. Orthopedic surgery, right ankle, right knee, left shoulder. ENCOUNTER: Initial ACUITY: 1 day PAIN SCORE: 0/10 LOCATION: Bilateral neck PEAK SYSTOLIC VELOCITIES (cm/sec): ICA/CCA RATIO: Right: 0.8 Left: 0.7 ICA: Right: 108 Left: 90 CCA: Right: 129 Left: 121 ECA: Right: 114 Left: 98 VERTEBRAL: Right: 66 antegrade Left: 43 antegrade Elevated flow velocities and ICA/CCA ratios have been found to correlate with increased degrees of vessel stenosis, calculated as percentage of diameter relative to a normal segment of distal ICA/CCA FINDINGS: RIGHT CAROTID: No significant stenosis is visualized. The waveforms are within normal limits. LEFT CAROTID: No significant stenosis is visualized. The waveforms are within normal limits. VERTEBRAL ARTERIES: Antegrade flow is seen in both vertebral arteries. MISCELLANEOUS: None. CONCLUSION: Normal examination. Rey Barrera MD on July 17, 2017 at 15:22 Board Certified Radiologist. This report was verified electronically.
[2017-07-17] MEDS ORDERED: MECL1TAB42 PO (15:29)
--- NOTE | 2017-07-17 15:30 | HHI.DCPOC ---
Discharge Care Plan Diagnosis: (1) Dizziness Goals to Promote Your Health * To prevent worsening of your condition and complications * To maintain your health at the optimal level Directions to Meet Your Goals Take your medications as prescribed Follow your dietary instruction Follow activity as directed Keep your appointments as scheduled Take your immunizations and boosters as scheduled If your symptoms worsen call your PCP, if no PCP go to Urgent Care Center or Emergency Room Smoking is Dangerous to Your Health. Avoid second hand smoke Call the 24-hour hour crisis hotline for domestic abuse at Dorian Wetzel Jul 17, 2017 15:30
[2017-07-17] MEDS ORDERED: SODIUM CHLORIDE 0.9% FLUSH 10 ML FLUSH IVF PRN (16:00)
[2017-07-17] MEDS ORDERED: ATORVASTATIN 40 MG TAB PO SCH (21:00)
== END 2017-07-17 16:24 | disposition home or self-care (01) ==
LOC: PHED 17:22 → PHEDA 19:21 → PH3A 20:19
PROVIDERS: ADMIT Hospitalist; ATTEND Hospitalist
DX: H81.10 Benign paroxysmal vertigo, unspecified ear (principal); N17.9 Acute kidney failure, unspecified; R11.2 Nausea with vomiting, unspecified; N18.2 Chronic kidney disease, stage 2 (mild); E11.22 Type 2 diabetes mellitus with diabetic chronic kidney disease; I12.9 Hypertensive chronic kidney disease with stage 1 through stage 4 chronic kidney disease, or unspecified chronic kidney disease; E78.5 Hyperlipidemia, unspecified; F32.9 Major depressive disorder, single episode, unspecified; F41.9 Anxiety disorder, unspecified; Z85.118 Personal history of other malignant neoplasm of bronchus and lung; Z96.651 Presence of right artificial knee joint; Z87.891 Personal history of nicotine dependence; R07.9 Chest pain, unspecified; N32.81 Overactive bladder; J44.9 Chronic obstructive pulmonary disease, unspecified; R53.1 Weakness; R05 Cough; R11.0 Nausea
CPT/HCPCS: 70450; 70553; 80053; 81001; 82948; 85025; 93005; 93880; 96361; 96372; 96374; 97162; 99285; A9579; G0378; G8987; G8988; J1642; J1815; J2060; J7030